=== PATIENT | female | born 1935 | race Caucasian/White ===

== ENCOUNTER 2018-02-15 08:41 | Outpatient (CLI) | payer MEDICARE | END 2018-02-15 08:42 | disposition home or self-care (01) | LOC: BICMAMMO 08:41 | PROVIDERS: ATTEND Internal Medicine | DX: Z12.31 Encounter for screening mammogram for malignant neoplasm of breast (principal) | CPT/HCPCS: 77063; 77067 ==

== ENCOUNTER 2019-07-29 12:07 | Emergency (ER) | payer MEDICARE ==
--- NOTE | 2019-07-29 12:37 | RAD ---
XR Foot Lt 3 View STANDARD History: Trauma. Swelling Comparison: None. 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 H igh-grade midfoot degenerative changes. 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 No acute displaced fracture is appreciated. Bunionectomy changes of the great toe metatarsal head. Mo derate lateral subluxation of the great toe metatarsophalangeal joint. Impression: Chronic findings. No acute fracture or malalignment.
--- NOTE | 2019-07-29 12:51 | ULT ---
US Venous Doppler Lt Unilat History: Pain. Swelling Comparison: None. Findings: Real-time grayscale, color, and spectral analysis of the left lower extremity venous system was performed. The common femoral, femoral, proximal portions greater saphenous and deep femoral veins as well as the popliteal and posterior tibial veins were interrogated. Normal flow, augmentation, and compression. Moderate lower extremity edema especially below the calf. Impression: No deep venous thrombosis.
== END 2019-07-29 13:08 | disposition home or self-care (01) ==
LOC: SCSER 12:07
DX: S93.505A Unspecified sprain of left lesser toe(s), initial encounter (principal); S80.862A Insect bite (nonvenomous), left lower leg, initial encounter; L03.116 Cellulitis of left lower limb; E78.5 Hyperlipidemia, unspecified; E78.00 Pure hypercholesterolemia, unspecified; I10 Essential (primary) hypertension; W22.8XXA Striking against or struck by other objects, initial encounter

== ENCOUNTER 2022-04-19 18:49 | Inpatient (IN) | payer MEDICARE ==
[2022-04-19] MEDS ORDERED: Dextrose 50% Abboject 50 ML SYRINGE SLOW IVP PRN (19:51)
[2022-04-19] MEDS ORDERED: Dextrose 5% in Water 1,000 ML IV PRN (19:51)
[2022-04-19] MEDS ORDERED: Morphine 2 MG/ML VIAL SLOW IVP PRN (19:51)
[2022-04-19] MEDS ORDERED: hydrALAZINE 20 MG/ML VIAL SLOW IVP PRN (19:51)
[2022-04-19] MEDS ORDERED: Ondansetron PF 4 MG/2 ML Vial IVP PRN (19:51)
[2022-04-19] MEDS ORDERED: Ibuprofen 800 MG TAB PO PRN (19:54)
[2022-04-19] MEDS ORDERED: traMADol HCl 50 MG TAB PO PRN ×2 (19:54)
[2022-04-19 21:43] VITALS: BMI 26.7
[2022-04-19] MEDS: Acetaminophen 500 MG TAB PO SCH (22:04)
[2022-04-19] MEDS: Senokot S 8.6-50 MG TAB PO SCH (22:05)
[2022-04-19] MEDS: Cyclobenzaprine 10 MG TAB PO PRN (23:05)
[2022-04-19] MEDS: Enoxaparin Sodium 40 MG/0.4 ML SYRINGE SC SCH (23:52)
[2022-04-19] MEDS: Famotidine 20 MG TAB PO SCH (23:52)
[2022-04-20] MEDS: Acetaminophen 500 MG TAB PO SCH ×2 (03:53→08:08)
[2022-04-20 06:18] LABS: #Basophils 0.1 thou/uL (0.0-0.2); #Lymphocytes 1.4 thou/uL (1.20-3.40); #Monocytes 0.7 thou/uL (0.11-0.59); #Neutrophils 3.3 thou/uL (1.40-6.50); %Basophils 1.1 % (0.0-1.0); %Eosinophils 0.4 % (0.0-10.0); %Lymphocytes 24.7 % (21.0-51.0); %Monocytes 13.3 % (0.0-10.0); %Neutrophils 60.5 % (42.0-75.0); Hemoglobin 11.9 g/dL (12.0-16.0); Mean Corpuscular HGB CONC 33.7 g/dL (32.0-36.0); Mean Corpuscular Volume 97.8 fL (78.0-98.0); Mean Platelet Volume 7.9 fL (7.4-10.4); Platelet Count 173 thou/uL (130-400); RBC Distribution Width 12.5 % (11.5-14.5); White Blood Cell (WBC) Count 5.5 thou/uL (4.8-10.8)
[2022-04-20 06:25] LABS: SARS-CoV-2 NAA Rapid Test Not Detected (NotDetected)
[2022-04-20 06:41] LABS: Anion Gap 12 mmol/L (10-20); BUN (Urea Nitrogen) 16 mg/dL (9.8-20.1); Calc. Creatinine Clearance 63 mL/min (70-130); Calcium 9.1 mg/dL (7.8-10.44); Carbon Dioxide 29 mmol/L (23-31); Chloride 103 mmol/L (98-107); Estimated GFR 73; Glucose 109 mg/dL (83-110); Magnesium 2.1 mg/dL (1.6-2.6); Phosphorus 4.5 mg/dL (2.3-4.7); Potassium 4.2 mmol/L (3.5-5.1); Sodium 140 mmol/L (136-145)
[2022-04-20] MEDS: Famotidine 20 MG TAB PO SCH ×2 (08:08→21:15)
[2022-04-20] MEDS: Senokot S 8.6-50 MG TAB PO SCH ×2 (08:08→21:15)
[2022-04-20] MEDS: Acetaminophen 325 MG TAB PO SCH ×2 (15:38→21:17)
[2022-04-20 19:33] LABS: Bilirubin Negative (Negative); Blood, Urine Negative (Negative); Clarity Clear (Clear); Glucose, Urine (Dipstick) Normal (Negative); Ketone, Urine Negative (Negative); Leukocyte 250 Leu/uL (Negative); Nitrite 1+ (Negative); Protein, Urine (Dipstick) 10 mg/dL (Neg-Trace); Specific Gravity, Urine 1.019 (1.002-1.036); Urobilinogen Normal mg/dL (Less than 2); pH, Urine 5.5 (5.0-9.0)
[2022-04-20 19:37] LABS: Bacteria/HPF 4+ HPF (None Seen); Squamous Epithelial None Seen HPF (0-3); Urine Culture Reflex Yes Yes
[2022-04-20] MEDS ORDERED: Ciprofloxacin 500 MG TAB PO SCH (20:15)
[2022-04-20] MEDS: Enoxaparin Sodium 40 MG/0.4 ML SYRINGE SC SCH (21:16)
[2022-04-20] MEDS: Acetaminophen/Codeine 30-300mg Tablet PO PRN (21:16)
[2022-04-20] MEDS: Cyclobenzaprine 10 MG TAB PO PRN (21:16)
[2022-04-20] MEDS ORDERED: Haloperidol Lactate 5 MG/ML VIAL SLOW IVP SCH (22:45)
[2022-04-21] MEDS: Acetaminophen 325 MG TAB PO SCH ×6 (02:45→20:48)
[2022-04-21 05:41] LABS: #Neutrophils 4.9 thou/uL (1.40-6.50); %Basophils 0.7 % (0.0-1.0); %Eosinophils 0.6 % (0.0-10.0); %Lymphocytes 14.1 % (21.0-51.0); %Monocytes 14.1 % (0.0-10.0); %Neutrophils 70.4 % (42.0-75.0); Hemoglobin 11.5 g/dL (12.0-16.0); Mean Corpuscular Hemoglobin 33.9 pg (27.0-31.0); Mean Platelet Volume 8.3 fL (7.4-10.4); Platelet Count 162 thou/uL (130-400); RBC Distribution Width 12.3 % (11.5-14.5); Red Blood Cell (RBC) Count 3.38 mill/uL (4.20-5.40)
[2022-04-21] MEDS: Ciprofloxacin 500 MG TAB PO SCH ×2 (06:10→20:48)
[2022-04-21 06:12] LABS: Anion Gap 14 mmol/L (10-20); BUN (Urea Nitrogen) 15 mg/dL (9.8-20.1); Calc. Creatinine Clearance 71 mL/min (70-130); Calcium 8.9 mg/dL (7.8-10.44); Carbon Dioxide 25 mmol/L (23-31); Chloride 104 mmol/L (98-107); Estimated GFR 83; Glucose 131 mg/dL (83-110); Magnesium 1.9 mg/dL (1.6-2.6); Phosphorus 2.7 mg/dL (2.3-4.7); Potassium 3.6 mmol/L (3.5-5.1); Sodium 139 mmol/L (136-145)
[2022-04-21] MEDS ORDERED: Magnesium 2 GM/50 ML(in water) 2 GM in Premix Bag 1 BAG IVPB SCH (08:00)
[2022-04-21] MEDS ORDERED: Potassium Phosphate 30 MMOL in Sodium Chloride 0.9% 250 ML 250 ML IVPB SCH (09:00)
[2022-04-21] MEDS: Famotidine 20 MG TAB PO SCH ×2 (09:30→20:49)
[2022-04-21] MEDS: Senokot S 8.6-50 MG TAB PO SCH ×2 (09:30→20:49)
[2022-04-21] MEDS: Enoxaparin Sodium 40 MG/0.4 ML SYRINGE SC SCH (20:47)
[2022-04-21] MEDS: Cyclobenzaprine 10 MG TAB PO PRN (23:06)
[2022-04-21] MEDS: Acetaminophen/Codeine 30-300mg Tablet PO PRN (23:06)
[2022-04-22] MEDS: Acetaminophen 325 MG TAB PO SCH ×3 (02:16→14:20)
[2022-04-22] MEDS: Ciprofloxacin 500 MG TAB PO SCH (05:07)
[2022-04-22] MEDS ORDERED: Vancomycin 1 GM/200 ML BAG ONE (08:46)
[2022-04-22] MEDS ORDERED: fentaNYL Citrate/PF 100 MCG/2 ML SYRINGE ONE (08:50)
[2022-04-22] MEDS ORDERED: Propofol 1,000 MG/100 ML VIAL IV ONE (08:51)
[2022-04-22] MEDS ORDERED: Propofol 500 MG/50 ML VIAL ONE (08:51)
[2022-04-22] MEDS ORDERED: Phenylephrine 10 MG/ML VIAL ONE (08:51)
[2022-04-22] MEDS: Senokot S 8.6-50 MG TAB PO SCH ×2 (09:04→20:52)
[2022-04-22] MEDS: Famotidine 20 MG TAB PO SCH ×2 (09:04→20:52)
[2022-04-22] MEDS ORDERED: Tranexamic Acid 1,000 MG/10 ML VIAL ONE (09:34)
[2022-04-22] MEDS ORDERED: CEFAZOLIN 2 GM VIAL ONE (09:34)
[2022-04-22] MEDS ORDERED: Sodium Chloride 0.9% 100 ML ONE ×2 (09:34)
[2022-04-22] MEDS ORDERED: Lidocaine 1% PF 5 ML VIAL ONE (09:48)
[2022-04-22] MEDS ORDERED: PROPOFOL 200 MG/20 ML VIAL ONE (09:48)
[2022-04-22] MEDS ORDERED: PHENYLEPHRINE-NS 100 MCG/ML 10 ML SYRINGE ONE (09:48)
[2022-04-22] MEDS ORDERED: Rocuronium Bromide 10 MG/ML (10ML VIAL) ONE (09:48)
[2022-04-22] MEDS ORDERED: Bupivacaine HCl 0.5%/Epinephrine 1:200,000/PF 30 ml Vial ONE (09:48)
[2022-04-22] MEDS ORDERED: Ondansetron PF 4 MG/2 ML Vial ONE (09:48)
[2022-04-22] MEDS ORDERED: Dexamethasone 20 MG/5 ML VIAL ONE (09:48)
[2022-04-22] MEDS ORDERED: Bupivacaine 0.75% W/DEXTROSE 8.25% 2 ML AMP ONE (09:58)
[2022-04-22] MEDS ORDERED: ceFAZolin 2 GM/Dextrose 50 ML 2 GM in Premix Bag 1 BAG IVPB SCH ×2 (10:00→14:00)
[2022-04-22] MEDS: Sodium Chloride 0.9% 1,000 ML IV SCH ×2 (10:04→14:21)
[2022-04-22] MEDS: cefTRIAXone\\ROCEPHIN 2 GM in Sodium Chloride 0.9% 100 ML IVPB SCH (10:04)
[2022-04-22] MEDS ORDERED: Bupivacaine PF 0.5% 30 ML VIAL ONE (11:41)
[2022-04-22] MEDS ORDERED: SUGAMMADEX SODIUM 200 MG/2 ML VIAL ONE (12:21)
[2022-04-22] MEDS ORDERED: HYDROcodone/Acetaminophen 5/325 mg Tablet PO PRN (12:36)
[2022-04-22] MEDS ORDERED: Fentanyl 100 MCG/2 ML VIAL ONE ×2 (12:54→13:24)
[2022-04-22] MEDS ORDERED: Ketorolac Tromethamine 30 MG/ML VIAL IVP SCH (15:15)
[2022-04-22] MEDS: Acetaminophen/Codeine 30-300mg Tablet PO SCH ×2 (15:52→20:53)
[2022-04-22] MEDS ORDERED: CEFAZOLIN 2 GM in Sodium Chloride 0.9% 100 ML IVPB SCH (18:00)
[2022-04-22] MEDS: CEFAZOLIN 2 GM in Sodium Chloride 0.9% 100 ML IVPB SCH (20:51)
[2022-04-22] MEDS: Enoxaparin Sodium 40 MG/0.4 ML SYRINGE SC SCH (20:51)
[2022-04-22] MEDS: Donepezil HCl 5 MG TAB PO SCH (20:52)
[2022-04-23] MEDS: Ketorolac Tromethamine 30 MG/ML VIAL IVP SCH ×4 (00:10→17:13)
[2022-04-23] MEDS: CEFAZOLIN 2 GM in Sodium Chloride 0.9% 100 ML IVPB SCH ×2 (02:10→09:57)
[2022-04-23] MEDS: Acetaminophen/Codeine 30-300mg Tablet PO SCH ×4 (05:00→21:12)
[2022-04-23 06:43] LABS: #Lymphocytes 1.1 thou/uL (1.20-3.40); #Monocytes 1.1 thou/uL (0.11-0.59); #Neutrophils 5.5 thou/uL (1.40-6.50); %Basophils 0.1 % (0.0-1.0); %Eosinophils 0.1 % (0.0-10.0); %Lymphocytes 14.5 % (21.0-51.0); %Monocytes 14.3 % (0.0-10.0); Hemoglobin 9.4 g/dL (12.0-16.0); Mean Corpuscular HGB CONC 33.9 g/dL (32.0-36.0); Mean Corpuscular Hemoglobin 32.4 pg (27.0-31.0); Mean Corpuscular Volume 95.6 fL (78.0-98.0); Platelet Count 166 thou/uL (130-400); RBC Distribution Width 13.8 % (11.5-14.5); Red Blood Cell (RBC) Count 2.91 mill/uL (4.20-5.40); White Blood Cell (WBC) Count 7.7 thou/uL (4.8-10.8)
[2022-04-23 07:14] LABS: Anion Gap 12 mmol/L (10-20); BUN (Urea Nitrogen) 18 mg/dL (9.8-20.1); Calc. Creatinine Clearance 64 mL/min (70-130); Calcium 8.4 mg/dL (7.8-10.44); Carbon Dioxide 24 mmol/L (23-31); Chloride 108 mmol/L (98-107); Estimated GFR 75; Glucose 132 mg/dL (83-110); Potassium 4.2 mmol/L (3.5-5.1); Sodium 140 mmol/L (136-145)
[2022-04-23] MEDS: Donepezil HCl 5 MG TAB PO SCH ×2 (08:05→21:14)
[2022-04-23] MEDS: Ascorbic Acid 500 mg Chewable Tablet PO SCH ×2 (09:57→21:14)
[2022-04-23] MEDS: Polyethylene Glycol 3350 17 GM Packet PO SCH (09:57)
[2022-04-23] MEDS: Famotidine 20 MG TAB PO SCH ×2 (09:57→21:14)
[2022-04-23] MEDS: cefTRIAXone\\ROCEPHIN 2 GM in Sodium Chloride 0.9% 100 ML IVPB SCH (09:57)
[2022-04-23] MEDS: Aspirin 325 MG TAB PO SCH (09:58)
[2022-04-23] MEDS: Ferrous Sulfate 325 MG TAB PO SCH ×2 (09:58→17:12)
[2022-04-23] MEDS: Senokot S 8.6-50 MG TAB PO SCH ×2 (09:58→21:13)
[2022-04-23] MEDS ORDERED: Lactated Ringer's 500 ML IV SCH (13:30)
[2022-04-23] MEDS: Ibuprofen 200 MG TAB PO SCH (21:13)
[2022-04-23] MEDS: Cyclobenzaprine 10 MG TAB PO PRN (21:14)
[2022-04-23] MEDS: Enoxaparin Sodium 40 MG/0.4 ML SYRINGE SC SCH (21:14)
[2022-04-23] MEDS ORDERED: Haloperidol Lactate 5 MG/ML VIAL SLOW IVP SCH (23:15)
[2022-04-24] MEDS ORDERED: Lorazepam 2 MG/ML VIAL SLOW IVP SCH (03:30)
[2022-04-24] MEDS: Acetaminophen/Codeine 30-300mg Tablet PO SCH ×4 (04:40→20:30)
[2022-04-24] MEDS: Ibuprofen 200 MG TAB PO SCH ×3 (06:44→20:30)
[2022-04-24] MEDS: cefTRIAXone\\ROCEPHIN 2 GM in Sodium Chloride 0.9% 100 ML IVPB SCH (09:22)
[2022-04-24] MEDS: Senokot S 8.6-50 MG TAB PO SCH ×2 (09:22→20:29)
[2022-04-24] MEDS: Aspirin 325 MG TAB PO SCH (09:22)
[2022-04-24] MEDS: Ferrous Sulfate 325 MG TAB PO SCH ×2 (09:23→15:35)
[2022-04-24] MEDS: Famotidine 20 MG TAB PO SCH ×2 (09:23→20:31)
[2022-04-24] MEDS: Ascorbic Acid 500 mg Chewable Tablet PO SCH ×2 (09:25→20:29)
[2022-04-24] MEDS: Polyethylene Glycol 3350 17 GM Packet PO SCH (09:25)
[2022-04-24] MEDS ORDERED: Sodium Chloride 0.9% 1,000 ML IV SCH (20:00)
[2022-04-24] MEDS ORDERED: Sodium Chloride 0.9% 500 ML IV SCH (20:00)
[2022-04-24] MEDS: Enoxaparin Sodium 40 MG/0.4 ML SYRINGE SC SCH (20:28)
[2022-04-24] MEDS: Cyclobenzaprine 10 MG TAB PO PRN (20:28)
[2022-04-24] MEDS: Donepezil HCl 5 MG TAB PO SCH (20:31)
[2022-04-24] MEDS ORDERED: Melatonin 3 MG TAB PO SCH (21:00)
[2022-04-25] MEDS: Acetaminophen/Codeine 30-300mg Tablet PO SCH ×2 (04:15→09:18)
[2022-04-25] MEDS: Ibuprofen 200 MG TAB PO SCH (06:19)
[2022-04-25 06:42] LABS: Anion Gap 13 mmol/L (10-20); BUN (Urea Nitrogen) 16 mg/dL (9.8-20.1); Calc. Creatinine Clearance 78 mL/min (70-130); Calcium 8.2 mg/dL (7.8-10.44); Carbon Dioxide 25 mmol/L (23-31); Chloride 107 mmol/L (98-107); Estimated GFR 85; Glucose 94 mg/dL (83-110); Magnesium 1.9 mg/dL (1.6-2.6); Phosphorus 3.1 mg/dL (2.3-4.7); Potassium 3.6 mmol/L (3.5-5.1); Sodium 141 mmol/L (136-145)
[2022-04-25] MEDS: Polyethylene Glycol 3350 17 GM Packet PO SCH (09:15)
[2022-04-25] MEDS: Aspirin 325 MG TAB PO SCH (09:18)
[2022-04-25] MEDS: Ferrous Sulfate 325 MG TAB PO SCH (09:21)
[2022-04-25] MEDS: Senokot S 8.6-50 MG TAB PO SCH (09:21)
[2022-04-25] MEDS: Ascorbic Acid 500 mg Chewable Tablet PO SCH (09:22)
[2022-04-25] MEDS: Famotidine 20 MG TAB PO SCH (09:22)
[2022-04-25 12:05] VITALS: BP 106/70; TEMP 97.5
== END 2022-04-25 13:25 | DRG 467 ==
LOC: ERS 18:49 → SURG A 19:51
PROVIDERS: ADMIT Surgery; ATTEND Surgery
PROC: 0QS604Z Reposition Right Upper Femur with Internal Fixation Device, Open Approach (ICD-10-PCS; principal; 2022-04-22)
PROC: 0SRR01Z Replacement of Right Hip Joint, Femoral Surface with Metal Synthetic Substitute, Open Approach (ICD-10-PCS; 2022-04-22)
PROC: 0SPR0JZ Removal of Synthetic Substitute from Right Hip Joint, Femoral Surface, Open Approach (ICD-10-PCS; 2022-04-22)
PROC: 30233N1 Transfusion of Nonautologous Red Blood Cells into Peripheral Vein, Percutaneous Approach (ICD-10-PCS; 2022-04-22)
DX: S72.8X1A Other fracture of right femur, initial encounter for closed fracture (principal); M97.01XA Periprosthetic fracture around internal prosthetic right hip joint, initial encounter; N39.0 Urinary tract infection, site not specified; W19.XXXA Unspecified fall, initial encounter; E78.5 Hyperlipidemia, unspecified; E78.00 Pure hypercholesterolemia, unspecified; F03.90 Unspecified dementia, unspecified severity, without behavioral disturbance, psychotic disturbance, mood disturbance, and anxiety; D64.9 Anemia, unspecified; G47.00 Insomnia, unspecified; Z20.822 Contact with and (suspected) exposure to COVID-19; Y92.9 Unspecified place or not applicable; Z98.890 Other specified postprocedural states; Z90.710 Acquired absence of both cervix and uterus
CPT/HCPCS: 36415; 36430; 80048; 81001; 83735; 84100; 85025; 86850; 86900; 86901; 87077; 87086; 87186; 99284; C1713; C1776; J0690; J0696; J1100; J1630; J1650; J1885; J2060; J2270; J2370; J2405; J2704; J3010; J3370; J3475; J3490; J7050; J7120; P9016; S0020; U0002

== ENCOUNTER 2022-05-04 | Inpatient (IN) | payer MEDICARE ==
[2022-05-04 01:03] LABS: Bacteria/HPF None Seen HPF (None Seen); Bilirubin Negative (Negative); Blood, Urine 1+ (Negative); Clarity Clear (Clear); Glucose, Urine (Dipstick) Normal (Negative); Ketone, Urine 20 mg/dL (Negative); Leukocyte 25 Leu/uL (Negative); Nitrite Negative (Negative); Protein, Urine (Dipstick) Negative (Neg-Trace); RBC/HPF 21-50 HPF (0-3); Specific Gravity, Urine 1.021 (1.002-1.036); Squamous Epithelial 0-3 HPF (0-3); Transitional Epithelial 0-3 HPF (None Seen); Urobilinogen Normal mg/dL (Less than 2)
[2022-05-04 01:26] LABS: #Eosinphils 0.2 thou/uL (0.0-0.7); #Lymphocytes 0.9 thou/uL (1.20-3.40); #Monocytes 0.7 thou/uL (0.11-0.59); #Neutrophils 6.6 thou/uL (1.40-6.50); %Basophils 0.6 % (0.0-1.0); %Eosinophils 2.4 % (0.0-10.0); %Lymphocytes 10.6 % (21.0-51.0); %Monocytes 8.3 % (0.0-10.0); %Neutrophils 78.1 % (42.0-75.0); Mean Corpuscular HGB CONC 31.9 g/dL (32.0-36.0); Mean Corpuscular Hemoglobin 31.5 pg (27.0-31.0); Mean Platelet Volume 7.1 fL (7.4-10.4); Platelet Count 445 thou/uL (130-400); RBC Distribution Width 14.6 % (11.5-14.5); Red Blood Cell (RBC) Count 3.16 mill/uL (4.20-5.40); White Blood Cell (WBC) Count 8.4 thou/uL (4.8-10.8)
[2022-05-04 01:50] LABS: ALT (SGPT) 19 U/L (8-55); AST (SGOT) 21 U/L (5-34); Albumin 3.6 g/dL (3.4-4.8); Alkaline Phosphatase 78 U/L (40-110); Anion Gap 18 mmol/L (10-20); BUN (Urea Nitrogen) 17 mg/dL (9.8-20.1); Bilirubin, Total 1.3 mg/dL (0.2-1.2); Calc. Creatinine Clearance 0 mL/min (70-130); Calcium 8.7 mg/dL (7.8-10.44); Carbon Dioxide 25 mmol/L (23-31); Chloride 100 mmol/L (98-107); Estimated GFR 83; Globulin 2.3 g/dL (2.4-3.5); Glucose 141 mg/dL (83-110); Potassium 3.7 mmol/L (3.5-5.1); Protein, Total 5.9 g/dL (5.8-8.1); Sodium 139 mmol/L (136-145)
[2022-05-04] MEDS ORDERED: Cefepime 2 GM VIAL ONE (05:25)
[2022-05-04] MEDS ORDERED: Vancomycin 1 GM/200 ML BAG ONE (05:25)
[2022-05-04] MEDS ORDERED: cloNIDine 0.1 MG TAB ONE (05:25)
[2022-05-04 07:00] VITALS: BMI 26.6
[2022-05-04] MEDS ORDERED: Ondansetron PF 4 MG/2 ML Vial IVP PRN (08:50)
[2022-05-04] MEDS ORDERED: Ondansetron ODT 4 MG TAB PO PRN (08:50)
[2022-05-04] MEDS ORDERED: Acetaminophen 650 MG Suppository PR PRN (08:50)
[2022-05-04] MEDS ORDERED: Cyclobenzaprine 10 MG TAB PO PRN (08:51)
[2022-05-04] MEDS ORDERED: Vancomycin 1 GM in Premix Bag 1 BAG IVPB SCH ×2 (09:00→09:30)
[2022-05-04] MEDS ORDERED: Famotidine 20 MG TAB PO SCH (09:00)
[2022-05-04] MEDS ORDERED: Melatonin 3 MG TAB PO PRN (09:07)
[2022-05-04] MEDS: Aspirin 325 MG TAB PO SCH (09:44)
[2022-05-04] MEDS: Famotidine 20 MG TAB PO SCH ×2 (09:44→20:37)
[2022-05-04] MEDS: Ascorbic Acid 500 mg Chewable Tablet PO SCH ×2 (09:44→20:37)
[2022-05-04] MEDS: Polyethylene Glycol 3350 17 GM Packet PO SCH (09:44)
[2022-05-04] MEDS: Hydrochlorothiazide 25 MG TAB PO SCH (09:44)
[2022-05-04] MEDS: Sodium Chloride 0.9% 1,000 ML IV SCH ×2 (09:45→20:40)
[2022-05-04] MEDS: Acetaminophen/Codeine 30-300mg Tablet PO PRN ×2 (13:52→22:11)
[2022-05-04] MEDS ORDERED: Iopamidol-370 76% 500 ML 1 ML ONE (14:19)
[2022-05-04] MEDS: Ferrous Sulfate 325 MG TAB PO SCH (16:33)
[2022-05-04] MEDS: Donepezil HCl 5 MG TAB PO SCH (20:37)
[2022-05-04] MEDS: Cefepime 2 GM in Sodium Chloride 0.9% 100 ML IVPB SCH (20:38)
[2022-05-05] MEDS ORDERED: Melatonin 3 MG TAB PO SCH ×2 (02:30→21:00)
[2022-05-05 06:50] LABS: #Eosinphils 0.2 thou/uL (0.0-0.7); #Lymphocytes 1.3 thou/uL (1.20-3.40); #Monocytes 0.7 thou/uL (0.11-0.59); #Neutrophils 4.6 thou/uL (1.40-6.50); %Basophils 0.4 % (0.0-1.0); %Eosinophils 3.6 % (0.0-10.0); %Lymphocytes 18.9 % (21.0-51.0); %Monocytes 9.7 % (0.0-10.0); %Neutrophils 67.5 % (42.0-75.0); Hemoglobin 10.6 g/dL (12.0-16.0); Mean Corpuscular HGB CONC 30.9 g/dL (32.0-36.0); Mean Corpuscular Hemoglobin 31.1 pg (27.0-31.0); Mean Platelet Volume 7.8 fL (7.4-10.4); Platelet Count 470 thou/uL (130-400); RBC Distribution Width 14.9 % (11.5-14.5); Red Blood Cell (RBC) Count 3.39 mill/uL (4.20-5.40); White Blood Cell (WBC) Count 6.9 thou/uL (4.8-10.8)
[2022-05-05 06:57] LABS: Anion Gap 13 mmol/L (10-20); BUN (Urea Nitrogen) 11 mg/dL (9.8-20.1); Calc. Creatinine Clearance 78 mL/min (70-130); Calcium 8.6 mg/dL (7.8-10.44); Carbon Dioxide 27 mmol/L (23-31); Chloride 106 mmol/L (98-107); Estimated GFR 85; Glucose 106 mg/dL (83-110); Potassium 3.3 mmol/L (3.5-5.1); Sodium 143 mmol/L (136-145)
[2022-05-05] MEDS: Sodium Chloride 0.9% 1,000 ML IV SCH ×3 (07:44→21:02)
[2022-05-05] MEDS: Cefepime 2 GM in Sodium Chloride 0.9% 100 ML IVPB SCH ×2 (09:03→21:02)
[2022-05-05] MEDS: Ferrous Sulfate 325 MG TAB PO SCH ×3 (09:06→17:36)
[2022-05-05] MEDS: Aspirin 325 MG TAB PO SCH ×2 (09:07→09:21)
[2022-05-05] MEDS: Ascorbic Acid 500 mg Chewable Tablet PO SCH ×3 (09:07→21:05)
[2022-05-05] MEDS: Polyethylene Glycol 3350 17 GM Packet PO SCH ×2 (09:07→09:21)
[2022-05-05] MEDS: Famotidine 20 MG TAB PO SCH ×3 (09:07→21:06)
[2022-05-05] MEDS: Hydrochlorothiazide 25 MG TAB PO SCH ×2 (09:07→09:21)
[2022-05-05] MEDS ORDERED: Potassium Chloride 20 MEQ TAB PO SCH ×2 (09:15→14:00)
[2022-05-05] MEDS ORDERED: Ziprasidone 20 MG VIAL IM SCH (09:30)
[2022-05-05] MEDS: Vancomycin 1.5 GRAM/300 ML BAG 1.5 GM in Premix Bag 1 BAG IVPB SCH (10:42)
[2022-05-05] MEDS: Acetaminophen 325 MG TAB PO PRN (11:00)
[2022-05-05] MEDS: Donepezil HCl 5 MG TAB PO SCH (21:05)
[2022-05-05] MEDS: Apixaban 5 MG TAB PO SCH (21:05)
[2022-05-06 06:05] LABS: #Eosinphils 0.2 thou/uL (0.0-0.7); #Lymphocytes 1.1 thou/uL (1.20-3.40); #Monocytes 0.7 thou/uL (0.11-0.59); #Neutrophils 5.5 thou/uL (1.40-6.50); %Basophils 0.6 % (0.0-1.0); %Eosinophils 2.5 % (0.0-10.0); %Lymphocytes 14.4 % (21.0-51.0); %Neutrophils 73.5 % (42.0-75.0); Hemoglobin 10.9 g/dL (12.0-16.0); Mean Corpuscular HGB CONC 29.9 g/dL (32.0-36.0); Mean Corpuscular Hemoglobin 30.6 pg (27.0-31.0); Mean Platelet Volume 7.8 fL (7.4-10.4); Platelet Count 359 thou/uL (130-400); RBC Distribution Width 15.2 % (11.5-14.5); Red Blood Cell (RBC) Count 3.57 mill/uL (4.20-5.40); White Blood Cell (WBC) Count 7.4 thou/uL (4.8-10.8)
[2022-05-06 06:43] LABS: Anion Gap 19 mmol/L (10-20); BUN (Urea Nitrogen) 9 mg/dL (9.8-20.1); Calc. Creatinine Clearance 86 mL/min (70-130); Calcium 8.4 mg/dL (7.8-10.44); Carbon Dioxide 18 mmol/L (23-31); Chloride 104 mmol/L (98-107); Estimated GFR 87; Glucose 105 mg/dL (83-110); Potassium 3.9 mmol/L (3.5-5.1); Sodium 137 mmol/L (136-145)
[2022-05-06] MEDS: Ferrous Sulfate 325 MG TAB PO SCH ×2 (09:07→17:42)
[2022-05-06] MEDS: Apixaban 5 MG TAB PO SCH ×2 (09:07→19:45)
[2022-05-06] MEDS: Polyethylene Glycol 3350 17 GM Packet PO SCH (09:08)
[2022-05-06] MEDS: Hydrochlorothiazide 25 MG TAB PO SCH (09:08)
[2022-05-06] MEDS: Famotidine 20 MG TAB PO SCH ×2 (09:08→19:46)
[2022-05-06] MEDS: Aspirin 325 MG TAB PO SCH (09:08)
[2022-05-06] MEDS: Cefepime 2 GM in Sodium Chloride 0.9% 100 ML IVPB SCH ×2 (09:08→19:43)
[2022-05-06] MEDS: Ascorbic Acid 500 mg Chewable Tablet PO SCH ×2 (09:08→19:46)
[2022-05-06 09:14] LABS: Vancomycin, Trough 5.7 ug/mL
[2022-05-06] MEDS: Acetaminophen 325 MG TAB PO PRN ×3 (09:15→19:46)
[2022-05-06] MEDS ORDERED: Vancomycin 1.5 GRAM/300 ML BAG 1.5 GM in Premix Bag 1 BAG IVPB SCH (10:00)
[2022-05-06] MEDS: Vancomycin 1.5 GRAM/300 ML BAG 1.5 GM in Premix Bag 1 BAG IVPB SCH (10:15)
[2022-05-06] MEDS: Sodium Chloride 0.9% 1,000 ML IV SCH ×2 (12:44→19:43)
[2022-05-06] MEDS: Donepezil HCl 5 MG TAB PO SCH (19:46)
[2022-05-07] MEDS ORDERED: Ziprasidone 20 MG VIAL IM SCH ×2 (00:15→20:15)
[2022-05-07] MEDS ORDERED: Sterile Water 10 ML VIAL FS PRN (00:15)
[2022-05-07 06:49] LABS: Anion Gap 16 mmol/L (10-20); BUN (Urea Nitrogen) 9 mg/dL (9.8-20.1); Calc. Creatinine Clearance 82 mL/min (70-130); Calcium 8.6 mg/dL (7.8-10.44); Carbon Dioxide 22 mmol/L (23-31); Chloride 105 mmol/L (98-107); Estimated GFR 86; Glucose 88 mg/dL (83-110); Potassium 3.2 mmol/L (3.5-5.1); Sodium 140 mmol/L (136-145)
[2022-05-07 07:14] LABS: #Eosinphils 0.3 thou/uL (0.0-0.7); #Monocytes 0.6 thou/uL (0.11-0.59); #Neutrophils 3.8 thou/uL (1.40-6.50); %Basophils 0.6 % (0.0-1.0); %Eosinophils 5.1 % (0.0-10.0); %Lymphocytes 18.3 % (21.0-51.0); %Monocytes 9.7 % (0.0-10.0); %Neutrophils 66.2 % (42.0-75.0); Hemoglobin 10.3 g/dL (12.0-16.0); Mean Corpuscular HGB CONC 31.9 g/dL (32.0-36.0); Mean Corpuscular Hemoglobin 31.8 pg (27.0-31.0); Mean Corpuscular Volume 99.7 fL (78.0-98.0); Mean Platelet Volume 7.9 fL (7.4-10.4); Platelet Count 442 thou/uL (130-400); Red Blood Cell (RBC) Count 3.23 mill/uL (4.20-5.40); White Blood Cell (WBC) Count 5.7 thou/uL (4.8-10.8)
[2022-05-07] MEDS: Famotidine 20 MG TAB PO SCH ×2 (09:49→19:35)
[2022-05-07] MEDS: Potassium Chloride 20 MEQ TAB PO SCH ×2 (09:50→16:31)
[2022-05-07] MEDS: Hydrochlorothiazide 25 MG TAB PO SCH (09:51)
[2022-05-07] MEDS: Aspirin 325 MG TAB PO SCH (09:52)
[2022-05-07] MEDS: Ascorbic Acid 500 mg Chewable Tablet PO SCH ×2 (09:53→19:35)
[2022-05-07] MEDS: Ferrous Sulfate 325 MG TAB PO SCH ×2 (09:53→16:31)
[2022-05-07] MEDS: Apixaban 5 MG TAB PO SCH ×2 (09:53→19:35)
[2022-05-07] MEDS: Polyethylene Glycol 3350 17 GM Packet PO SCH (09:54)
[2022-05-07] MEDS: Cefepime 2 GM in Sodium Chloride 0.9% 100 ML IVPB SCH (09:55)
[2022-05-07] MEDS: Ciprofloxacin 500 MG TAB PO SCH (19:27)
[2022-05-07] MEDS: Donepezil HCl 5 MG TAB PO SCH (19:29)
[2022-05-07] MEDS ORDERED: Sterile Water 10 ML VIAL FS SCH (20:15)
[2022-05-08] MEDS: Ferrous Sulfate 325 MG TAB PO SCH (08:17)
[2022-05-08] MEDS: Polyethylene Glycol 3350 17 GM Packet PO SCH (08:17)
[2022-05-08] MEDS: Apixaban 5 MG TAB PO SCH (08:17)
[2022-05-08] MEDS: Famotidine 20 MG TAB PO SCH (08:17)
[2022-05-08] MEDS: Ascorbic Acid 500 mg Chewable Tablet PO SCH (08:17)
[2022-05-08] MEDS: Hydrochlorothiazide 25 MG TAB PO SCH (08:17)
[2022-05-08] MEDS: Ciprofloxacin 500 MG TAB PO SCH (08:17)
[2022-05-08 08:19] VITALS: TEMP 97.5
[2022-05-08] MEDS ORDERED: Aspirin 81 mg Enteric Coated Tablet PO SCH (09:00)
[2022-05-08 11:29] LABS: #Basophils 0.1 thou/uL (0.0-0.2); #Eosinphils 0.2 thou/uL (0.0-0.7); #Lymphocytes 0.9 thou/uL (1.20-3.40); #Monocytes 0.7 thou/uL (0.11-0.59); #Neutrophils 4.2 thou/uL (1.40-6.50); %Basophils 0.9 % (0.0-1.0); %Eosinophils 3.2 % (0.0-10.0); %Monocytes 10.9 % (0.0-10.0); Hemoglobin 9.5 g/dL (12.0-16.0); Mean Corpuscular HGB CONC 31.1 g/dL (32.0-36.0); Mean Corpuscular Hemoglobin 31.3 pg (27.0-31.0); Mean Platelet Volume 7.2 fL (7.4-10.4); Platelet Count 430 thou/uL (130-400); Red Blood Cell (RBC) Count 3.03 mill/uL (4.20-5.40)
[2022-05-08 11:31] VITALS: BP 118/75
[2022-05-08 11:55] LABS: Anion Gap 12 mmol/L (10-20); BUN (Urea Nitrogen) 10 mg/dL (9.8-20.1); Calc. Creatinine Clearance 76 mL/min (70-130); Calcium 8.6 mg/dL (7.8-10.44); Carbon Dioxide 29 mmol/L (23-31); Chloride 104 mmol/L (98-107); Estimated GFR 84; Glucose 98 mg/dL (83-110); Potassium 3.8 mmol/L (3.5-5.1); Sodium 141 mmol/L (136-145)
== END 2022-05-08 14:22 | DRG 299 ==
LOC: ERS → T4-B 04:54 → OBSVTOIN 08:53
PROVIDERS: ADMIT Internal Medicine; ATTEND Internal Medicine
DX: T81.72XA Complication of vein following a procedure, not elsewhere classified, initial encounter (principal); G93.41 Metabolic encephalopathy; I82.411 Acute embolism and thrombosis of right femoral vein; N30.00 Acute cystitis without hematuria; F02.81 Dementia in other diseases classified elsewhere, unspecified severity, with behavioral disturbance; G30.9 Alzheimer's disease, unspecified; Z96.641 Presence of right artificial hip joint; Z20.822 Contact with and (suspected) exposure to COVID-19; E78.5 Hyperlipidemia, unspecified; Z90.710 Acquired absence of both cervix and uterus; Z79.82 Long term (current) use of aspirin; Z79.899 Other long term (current) drug therapy; Z90.49 Acquired absence of other specified parts of digestive tract; Y83.8 Other surgical procedures as the cause of abnormal reaction of the patient, or of later complication, without mention of misadventure at the time of the procedure
CPT/HCPCS: 36415; 51701; 70450; 71045; 80048; 80053; 80202; 81003; 81015; 85025; 85652; 86140; 87040; 87086; 96374; G0378; J0692; J3370; J3486; J3490; J7050; Q9967; U0003; U0005